=== PATIENT | male | born 1955 | race Caucasian/White ===

== ENCOUNTER → 2017-10-23 | Outpatient (CLI) | payer OTHER ==
[~2017-10-23] MED LIST: ATOR10TA PO; LISI-167 PO
[2017-10-23 10:02] LABS: BASOPHILS # (AUTO) 0.02 x10^3/uL (0-0.1); BASOPHILS % (AUTO) 0 % (0-1); EOSINOPHILS # (AUTO) 0.26 x10^3/uL (0-0.4); EOSINOPHILS % (AUTO) 5 % (1-7); LYMPHOCYTES # (AUTO) 1.47 x10^3/uL (1-3.4); LYMPHOCYTES % (AUTO) 27 % (22-44); MD NO; MEAN CORPUSCULAR HEMOGLOBIN 30.5 pg (27.5-34.5); MEAN CORPUSCULAR HGB CONC 34.1 g/dL (33.2-36.2); MEAN CORPUSCULAR VOLUME 89.5 fL (81-97); MONOCYTES # (AUTO) 0.45 x10^3/uL (0.2-0.8); MONOCYTES % (AUTO) 8 % (2-9); NEUTROPHILS # (AUTO) 3.18 x10^3/uL (1.8-6.8); NEUTROPHILS % (AUTO) 59 % (42-75); PLATELET COUNT 237 x10^3/uL (130-400); RED BLOOD COUNT 4.52 x10^6/uL (4.38-5.82); RED CELL DISTRIBUTION WIDTH 12.8 % (9.4-14.8)
[2017-10-23 10:10] LABS: INTERNATIONAL NORMALIZED RATIO 0.98 (0.93-1.1); PROTHROMBIN TIME 10.2 Seconds (9.6-11.5)
[2017-10-23 10:14] LABS: ALBUMIN 3.9 g/dL (3.4-5.0); ANION GAP 8 mmol/L (5-15); CALCIUM 8.5 mg/dL (8.5-10.1); CHLORIDE 110 mmol/L (98-107)
[2017-10-23 10:18] LABS: ALANINE AMINOTRANSFERASE 38 U/L (12-78); ALKALINE PHOSPHATASE 97 U/L (45-117); BILIRUBIN,TOTAL 0.7 mg/dL (0.2-1.0); CREATININE 1.16 mg/dL (0.7-1.3); TOTAL PROTEIN 7.2 g/dL (6.4-8.2)
== END | disposition home or self-care (01) ==
LOC: STAR 09:08
PROVIDERS: ATTEND Neurological Surgery
DX: Z01.818 Encounter for other preprocedural examination (principal); M48.02 Spinal stenosis, cervical region
CPT/HCPCS: 36415; 71046; 80053; 85025; 85610; 85730; 93005

== ENCOUNTER 2017-10-29 05:50 | Inpatient (IN) | payer OTHER ==
[~2017-10-29] VITALS: Ht 167.6 cm; Wt 78.0 kg
[2017-10-29] MEDS ORDERED: LACTATED RINGERS 1,000 ML IV SCH (06:12)
[2017-10-29] MEDS ORDERED: AMLO5TAB2 PO (06:22)
[2017-10-29] MEDS ORDERED: TIZA4CAP PO (06:22)
[2017-10-29] MEDS ORDERED: GABA300C10 PO (06:22)
[2017-10-29] MEDS ORDERED: MELATONIN PO (06:22)
[2017-10-29] MEDS ORDERED: TRAM50TA2 PO (06:22)
[2017-10-29] MEDS ORDERED: ACET325T14 PO (06:22)
[2017-10-29] MEDS ORDERED: TYLENOL PM PO (06:22)
[2017-10-29] MEDS ORDERED: LIDOCAINE-MPF 1%, 2ML INFIL ONE (06:30)
[2017-10-29] MEDS ORDERED: MIDAZOLAM 1 MG/ML, 2ML ONE (06:33)
[2017-10-29] MEDS ORDERED: FENTANYL PF 250 MCG/5ML ONE (06:34)
[2017-10-29] MEDS ORDERED: PROPOFOL 100 ML ONE (06:34)
[2017-10-29] MEDS ORDERED: THROMBIN 5,000 UNIT VIAL TP ONE (06:39)
[2017-10-29] MEDS ORDERED: METHYLENE BLUE 10 MG/ML 10ML ONE (06:40)
[2017-10-29] MEDS ORDERED: BACITRACIN 50,000 UNIT ONE (06:40)
[2017-10-29] MEDS ORDERED: EPINEPHRINE 1 MG/ML, 1ML ONE (06:40)
[2017-10-29] MEDS ORDERED: BUPIVACAINE/PF-EPI 0.5% 1:200K ONE (06:40)
[2017-10-29] MEDS ORDERED: SUCCINYLCHOLINE 20 MG/ML, 10ML ONE (06:45)
[2017-10-29] MEDS ORDERED: PROPOFOL 10 MG/ML, 20ML ONE (06:45)
[2017-10-29] MEDS ORDERED: ROCURONIUM 10MG/ML,5ML ONE (06:46)
[2017-10-29] MEDS ORDERED: OxyconTIN ER 20 MG TAB.ER PO ONE (07:00)
[2017-10-29] MEDS ORDERED: ACETAMINOPHEN 500 MG TABLET PO ONE (07:00)
[2017-10-29] MEDS ORDERED: GABAPENTIN 300 MG CAPSULE PO ONE (07:00)
[2017-10-29] MEDS ORDERED: FAMOTIDINE 20 MG TABLET PO ONE (07:00)
[2017-10-29] MEDS ORDERED: DEXAMETHASONE 4 MG/ML, 1ML ONE ×3 (07:15)
[2017-10-29] MEDS ORDERED: CEFAZOLIN 1,000 MG ONE ×2 (07:16)
[2017-10-29] MEDS ORDERED: MEPERIDINE/PF 25MG/0.5ML IVPush PRN (10:00)
[2017-10-29] MEDS ORDERED: FENTANYL PF 100 MCG/2ML IV PRN (10:00)
[2017-10-29] MEDS ORDERED: hydrALAzine 20 MG/ML, 1ML IV PRN (10:00)
[2017-10-29] MEDS ORDERED: PROMETHAZINE 12.5 MG SUPP PR PRN (10:00)
[2017-10-29] MEDS ORDERED: LABETALOL 5MG/ML, 20ML IV PRN (10:00)
[2017-10-29] MEDS ORDERED: OXYcodone 5 MG/5 ML ORAL.SOL UDC PO PRN (10:00)
[2017-10-29] MEDS ORDERED: ONDANSETRON 2MG/ML, 2ML IV PRN ×2 (10:00→13:30)
[2017-10-29] MEDS ORDERED: HYDROmorphone 1 MG/ML, 1ML IV PRN (10:00)
[2017-10-29] MEDS ORDERED: ONDANSETRON 2MG/ML, 2ML ONE (10:29)
[2017-10-29] MEDS ORDERED: OXYcodone 5 MG/5 ML ORAL.SOL UDC ONE (11:43)
[2017-10-29 12:40] VITALS: BP 137/97
[2017-10-29] MEDS ORDERED: DIAZEPAM 5 MG TABLET PO PRN (13:30)
[2017-10-29] MEDS ORDERED: MAGNESIUM HYDROXIDE 8%, 30ML UDC PO PRN (13:30)
[2017-10-29] MEDS ORDERED: METHOCARBAMOL 750 MG TABLET PO PRN (13:30)
[2017-10-29] MEDS ORDERED: MELATONIN 3 MG TABLET PO PRN (13:30)
[2017-10-29] MEDS ORDERED: DIPHENHYDRAMINE 50 MG/ML, 1ML IVPush PRN (13:30)
[2017-10-29] MEDS ORDERED: HYDROmorphone 2 MG/ML, 1ML IM PRN (13:30)
[2017-10-29] MEDS ORDERED: DIPHENHYDRAMINE 50 MG/ML, 1ML IM PRN (13:30)
[2017-10-29] MEDS ORDERED: HYDROmorphone 2MG TABLET PO PRN (13:30)
[2017-10-29] MEDS ORDERED: BISACODYL 10 MG SUPP PR PRN (13:30)
[2017-10-29] MEDS ORDERED: HYDROcodone/APAP 5/325 TABLET PO PRN (13:30)
[2017-10-29] MEDS ORDERED: DIPHENHYDRAMINE 50 MG CAPSULE PO PRN (13:30)
[2017-10-29] MEDS ORDERED: DIAZEPAM 5 MG/ML, 2ML IV PRN ×2 (13:30→19:30)
[2017-10-29] MEDS ORDERED: PROMETHAZINE 25 MG/ML, 1ML IM PRN (13:30)
[2017-10-29] MEDS: NS + 20MEQ KCL 1,000 ML IV SCH (15:42)
[2017-10-29] MEDS: CEFAZOLIN PMX 1GM/50ML 50 ML IVPB SCH ×2 (15:43→23:32)
[2017-10-29] MEDS: GABAPENTIN 300 MG CAPSULE PO SCH ×2 (15:44→21:20)
[2017-10-29 18:18] VITALS: BP 122/77
[2017-10-29] MEDS ORDERED: ZOLPIDEM 5MG TABLET PO PRN (21:00)
[2017-10-29] MEDS ORDERED: TIZANIDINE 4MG TABLET PO SCH (21:00)
[2017-10-29] MEDS ORDERED: ACETAMINOPHEN 325 MG TABLET PO SCH (21:00)
[2017-10-29] MEDS: ATORVASTATIN 20 MG TABLET PO SCH (21:20)
[2017-10-29] MEDS: ACETAMINOPHEN 325 MG TABLET PO SCH (21:20)
[2017-10-30 01:14] VITALS: BP 118/76
[2017-10-30] MEDS: NS + 20MEQ KCL 1,000 ML IV SCH ×2 (02:46→14:30)
[2017-10-30 08:00] VITALS: BP 104/70
[2017-10-30] MEDS: ACETAMINOPHEN 325 MG TABLET PO SCH ×2 (08:26→21:00)
[2017-10-30] MEDS: AMLODIPINE 5 MG TABLET PO SCH (08:26)
[2017-10-30] MEDS: GABAPENTIN 300 MG CAPSULE PO SCH ×3 (08:26→22:50)
[2017-10-30] MEDS: SENNA/DOCUSATE TABLET PO SCH (08:27)
[2017-10-30] MEDS: LISINOPRIL 20 MG TABLET PO SCH (08:27)
[2017-10-30] MEDS ORDERED: OXYC-302 PO (09:08)
[2017-10-30] MEDS ORDERED: TIZA4TAB9 PO (09:08)
[2017-10-30] MEDS: TIZANIDINE 4MG TABLET PO SCH ×3 (10:25→22:50)
[2017-10-30] MEDS: ATORVASTATIN 20 MG TABLET PO SCH (19:54)
[2017-10-30] MEDS: OXYcodone/APAP 5/325MG TABLET PO PRN (19:54)
[2017-10-30 19:57] VITALS: BP 112/73
[2017-10-31] MEDS: OXYcodone/APAP 5/325MG TABLET PO PRN ×3 (00:17→08:45)
[2017-10-31] MEDS: NS + 20MEQ KCL 1,000 ML IV SCH (03:00)
[2017-10-31 03:30] VITALS: BP 131/81
[2017-10-31] MEDS: TIZANIDINE 4MG TABLET PO SCH (04:50)
[2017-10-31 08:10] VITALS: BP 129/71
[2017-10-31] MEDS: SENNA/DOCUSATE TABLET PO SCH (08:45)
[2017-10-31] MEDS: GABAPENTIN 300 MG CAPSULE PO SCH (08:45)
[2017-10-31] MEDS: LISINOPRIL 20 MG TABLET PO SCH (08:45)
[2017-10-31] MEDS: AMLODIPINE 5 MG TABLET PO SCH (08:45)
[2017-10-31] MEDS: ACETAMINOPHEN 325 MG TABLET PO SCH (08:45)
== END 2017-10-31 09:45 | disposition home or self-care (01) | DRG 473 ==
LOC: ORIP 05:50 → 4NOR 12:25 → DCLOUNGE 10-31 09:30
PROVIDERS: ADMIT Neurological Surgery; ATTEND Neurological Surgery
PROC: 01N10ZZ Release Cervical Nerve, Open Approach (ICD-10-PCS; 2017-10-29)
PROC: 0RG20A0 Fusion of 2 or more Cervical Vertebral Joints with Interbody Fusion Device, Anterior Approach, Anterior Column, Open Approach (ICD-10-PCS; principal; 2017-10-29 07:30)
DX: M47.22 Other spondylosis with radiculopathy, cervical region (principal); M48.02 Spinal stenosis, cervical region; Z88.0 Allergy status to penicillin
CPT/HCPCS: 36415; 72040; 86850; 86900; C1713; C1776; J0171; J0690; J1100; J2250; J2270; J2405; J2704; J3010; J3480; J0330; J7120; Q9968